=== PATIENT | male | born 1960 | race Caucasian/White ===

== ENCOUNTER 2025-03-10 13:03 | Outpatient (CLI) | payer BC, SELFPAY ==
[2025-03-10 13:40] VITALS: BP 150/91; PULSE 67; RESP 16; TEMP 36.7; O2SAT 98; BMI 29.2
== END 2025-03-10 23:59 | disposition home or self-care (01) ==
PROVIDERS: PCP Internal Medicine; Referring Provider Internal Medicine; Visit Provider Internal Medicine
DX: D75.1 Secondary polycythemia (principal)
CPT/HCPCS: 99195